=== PATIENT | male | born 1965 | race Asian ===

== ENCOUNTER 2018-11-27 16:23 | Inpatient (IN) | payer OTHER ==
[~2018-11-27] VITALS: Ht 172.7 cm; Wt 113.0 kg
--- NOTE | 2018-11-27 16:28 | NUR ---
PT BIBA [facility] FOR SOB. PT ARRIVED ON 10LPM SIMPLE MASK. ATTEMPTED TO BIPAP EN ROUTE AND PT CONTINUED TO TAKE OFF BREATHING TREATMENTS. PT NOT RESPONDING TO PAINFUL STIMULI. GAZE FIXED TO RIGHT SIDE. PUPILS BRISK. PER MEDICS PT WAS AT HOME WHEN HE BEGAN TO HAVE DIFFICULTY BREATHING. ATTEMPTED ALBUTEROL TREATMENT AT HOME WITH NO RELIEF AND CALLED 911. NO MEDICAL HISTORY ASIDE FROM [facility] PER MEDICS. NO ALLERGIES PER MEDICS. PT PLACED ON O2 MONITOR AND NOTED TO BE SATTING 70S PLACED ON 6L NC WHILE RT BROUGHT BIPAP.
--- NOTE | 2018-11-27 17:00 | NUR ---
DR. HARRISON, RT AND RNS AT BEDSIDE FOR INTUBATION. 1659: 1 AMP BICARB IVP 1700: 100 MG ROCURONIUM IVP 1700: 10 MG ETOMIDATE IVP 1701: INTUBATED BY DR. HARRISON WITH 7.5 ETT AND 20 @ LL. POSITIVE COLOR CHANGE. 1710: 1 AMP BICARB IVP VENT SETTINGS: VT 450, RR 20, PEEP 5 AND FIO2 100%
[2018-11-27 17:02] LABS: BASOPHIL % 0.4 % (0-2); PLATELET COUNT 330 x10^3mcL (130-400); RED CELL DISTRIBUTION WIDTH 14.1 % (11.5-14.5)
[2018-11-27 17:05] LABS: CALCIUM 9.2 mg/dL (8.5-10.1); CARBON DIOXIDE 30.4 mmol/L (21-32); CHLORIDE SERUM 103 mmol/L (98-107); CREATININE SERUM 0.9 mg/dL (0.7-1.3); GFR1 > 60 mL/min; GLUCOSE SERUM 330 mg/dL (74-106); POTASSIUM SERUM 3.9 mmol/L (3.5-5.1); SODIUM SERUM 139 mmol/L (136-145)
[2018-11-27 17:10] LABS: ALBUMIN 4.1 g/dL (3.4-5.0); ALKALINE PHOSPHATASE 64 U/L (46-116); ALT/SGPT 34 U/L (16-63); AST/SGOT 18 U/L (15-37); BILIRUBIN TOTAL 0.41 mg/dL (0.20-1.00); TOTAL PROTEIN, SERUM 7.8 g/dL (6.4-8.2)
--- NOTE | 2018-11-27 17:10 | NUR ---
ENNIS CATHETER INSERTED USING STERILE TECHNIQUE. 400 ML URINE OUTPUT UPON INSERTION
--- NOTE | 2018-11-27 17:10 | NUR ---
RIGHT NGT INSERTED AT THIS TIME. AIR BOLUS AUSCULTATED. PT TOLERATED WELL.
[2018-11-27 17:19] LABS: UA SPECIFIC GRAVITY 1.025 (1.005-1.035); microscopic required? YES; urine erythrocyte TRACE (NEGATIVE)
--- NOTE | 2018-11-27 17:30 | NUR ---
DR. HARRISON AT BEDSIDE FOR MSE AND PT ALTERED STATUS.
--- NOTE | 2018-11-27 18:30 | NUR ---
PT TAKEN TO CT SCAN WITH MYSELF, ZULMA RT AND BRO ERT. PT TOLERATED WELL
[2018-11-27] MEDS ORDERED: PROVENTIL0.09 MG/A1 (19:14)
--- NOTE | 2018-11-27 19:35 | NUR ---
PT TRANSFERRED FROM ER VIA [facility] ACCOMPANIED JOVANI RN, EMT, AND RTS. TRANSFERRED TO ICU BED WITH FULL ASSIST. PT INTUBATED WITH NO SEDATION. PT UNRESPONSIVE, UNABLE TO FOLLOW COMMANDS. 7.5 ETT SECURED AT 22 CM @ LL. NO JVD NOTED. TRACHEA MIDLINE. AGONAL BREATHING NOTED. DIM BREATH SOUNDS GARY. ADITYA RT AT BEDSIDE WILL ADVANCE ETT PER MD ORDER. VENT SETTINGS: AC MODE RATE 20, TV 450, PEEP 5, FIO2 100%. CHEST RISE EQUAL AND SYMMETRICAL. CUSTOMER CARE REPRESENTATIVE IN PLACE SHOWING ST WITH HR 115. CHEST WALL STABLE. NO JVD NOTED. IV TO RHAND AND RAC INTACT AND PATENT. NS INFUSING @ 100ML/HR. LEVAQUIN INFUSING WITH 30ML REMIAINING. SKIN INTACT. PT WARM DRY TO TOUCH. R NARE NGT INTACT AND PATENT. PT REMAINS NPO AT THIS TIME. ABD DISTENDED AND SOFT. BOWEL SOUNDS HYPOACTIVE. F/C INTACT AND DRAINING VIA GRAVITY YELLOW URINE. GEN WEAKNESS NOTED. TURNED AND REPOSITIONED Q2H FOR PRESSURE RELIEF. ALL NEEDS MET AT THIS TIME. WILL CONTINUE TO MONITOR.
[2018-11-27 19:47] VITALS: BP 140/90
[2018-11-27 20:24] LABS: MAGNESIUM 1.9 mg/dL (1.8-2.4); PHOSPHOROUS 5.7 mg/dL (2.5-4.9)
[2018-11-27 20:25] LABS: CHOLESTEROL/HDL RATIO 5.3
--- NOTE | 2018-11-27 20:30 | NUR ---
DR DING IN TO SEE PATIENT, UPDATED ON STATUS. DR IDNG STATES TO SET UP FOR A-LINE AND CENTRAL LINE PLACEMENT. START PROPOFOL AND FENTANYL SEDATION.
--- NOTE | 2018-11-27 20:40 | NUR ---
PROPOFOL SEDATION INTITIATED AT THIS TIME 10 MCG/KG/MIN. AWAITING FOR FENTANYL TO BE DELIEVERED BY PHARMACY.
--- NOTE | 2018-11-27 20:45 | NUR ---
DR FRANCISCO SEEN DISCUSSING PLAN OF CARE WITH PATIENTS FAMILY IN [facility]. CONSENT OBTAINED FOR A-LINE AND CENTRAL LINE PLACEMENT.
[2018-11-27 21:00] LABS: AMPHETAMINE QUAL UR NONE DETECTED (See below)
--- NOTE | 2018-11-27 21:00 | NUR ---
DR DING, MICROPHONE OPERATOR, AND MYSELF AT BEDSIDE. TIME OUT DONE. RIGHT FEMORAL A-LINE INSERTED WITH GOOD BLOOD RETURN. SUTURES IN PLACE. NO ACTIVE BLEEDING NOTED. DSG CDI.
--- NOTE | 2018-11-27 21:25 | NUR ---
ADVANCED ETT TO 25.5 CM AT THE LIP PER DR. DING VERBAL ORDER. RN NOTIFIED.
--- NOTE | 2018-11-27 21:25 | NUR ---
PER DR DING, ADVANCE ETT TO 25.5. ADITYA RT AT BEDSIDE ADVANCED ETT TO 25.5, AWAITING FOR XRAY.
--- NOTE | 2018-11-27 21:35 | NUR ---
DR FRANCISCO, MACHINE FEATHEREDGER AND REDUCER, AND MYSELF AT BEDSIDE. TIME DONE FOR RIGHT VS LEFT CENTRAL LINE PLACEMENT.
--- NOTE | 2018-11-27 21:43 | NUR ---
DR DING VERBAL GIVEN TO GIVE ZOSYN X1 NOW. ORDER NOTED AND CARRIED OUT. PHARMACY MADE AWARE.
--- NOTE | 2018-11-27 22:10 | NUR ---
DR DING CALLED, UPDATED ON STATUS. DR DING STATES PTS BLOOD SUGAR WILL NOT IMPROVE WITH PTS LOW BP, CHANGE INSULIN SUBQ TO INSULIN GTT. DR FRANCISCO MADE AWARE.
--- NOTE | 2018-11-27 22:10 | NUR ---
DR DING CALLED, TELEPHONE ORDER GIVEN TO INITIATE TF VITAL AF START AT 10ML/HR, MAX WILL BE 10ML/HR. PEPCID 20MG IVP Q12H. TELEPHONE ORDER READ BACK. ORDER NOTED AND CARRIED OUT.
--- NOTE | 2018-11-27 22:19 | NUR ---
XRAY AT BEDSIDE.
[2018-11-27 22:20] VITALS: BP 81/56
--- NOTE | 2018-11-27 22:22 | NUR ---
DR DING CALLED, STATES MAX DOSE OF LEVOPHED GTT IS 6 MCG/MIN. DECREASE PROPOFOL TO 10. IF BP SUSTAINS LOW, SWITCH PROPOFOL GTT TO VERSED GTT. DR FRANCISCO MADE AWARE.
--- NOTE | 2018-11-27 22:30 | NUR ---
LEVOPHED INITIATED AT 4 MCG/MIN. ART BP 68/35 MAP 50
--- NOTE | 2018-11-27 22:46 | NUR ---
FIO2 TITRATED TO 40% DUE TO ABG PaO2 RESULT OF 142.9. RN NOTIFIED. WILL MONITOR.
--- NOTE | 2018-11-27 23:30 | NUR ---
TF VITAL AF INITIATED AT 10ML/HR, FWF 50ML Q4H.
--- NOTE | 2018-11-27 23:46 | NUR ---
PTS BP REMAINS LOW AT 88/41 MAP 58. PROPOFOL DC'D. VERSED INTIATED AT 2 MG/HR, FENTANYL INFUSING @ 1 MCG/KG/MIN.
[2018-11-28] VITALS (20 sets, daily range): BP systolic 81–112; BP diastolic 42–73
--- NOTE | 2018-11-28 00:09 | NUR ---
NEOSYNEPHRINE GTT INITIATED AT THIS TIME @ 50 MCG/MIN, ART LINE MAP=58.
--- NOTE | 2018-11-28 00:19 | NUR ---
BLOOD SUGAR 343, INSULIN GTT TITRATED TO 4 UNITS/HR FROM 5 UNITS/HR AT THIS TIME PER SLIDING SCALE PER EMAR.
--- NOTE | 2018-11-28 01:04 | NUR ---
BS 300, INSULIN GTT TITRATED TO 3 UNITS/HR.
--- NOTE | 2018-11-28 03:23 | NUR ---
BP 91/42 MAP 62, NEOSYNEPHRINE TITRATED TO 75 MCG/MIN.
--- NOTE | 2018-11-28 04:15 | NUR ---
BS 232, INSULIN GTT TITRATED TO 2 UNITS/HR.
[2018-11-28 05:27] LABS: PLATELET COUNT 293 x10^3mcL (130-400)
--- NOTE | 2018-11-28 05:30 | NUR ---
PTS VENT ALARMING LOW VTE AND HIGH PRESSURE D/T PT BREATH STACKING. PT SEEN WITH LABORED AND ACCESSORY MUSCLE BREATHING. VERSED INCREASED TO 4 MG/HR.
[2018-11-28 05:40] LABS: CARBON DIOXIDE 28.4 mmol/L (21-32); POTASSIUM SERUM 4.6 mmol/L (3.5-5.1)
[2018-11-28 05:44] LABS: BAND NEUTROPHIL 3 % (0-10); MONOCYTE 3 % (0-7); PLATELET MORPHOLOGY PLATELETS NORMAL; SEGMENTED NEUTROPHILS 92 % (37-75); rbc morphology (normal/abnorm) NORMAL (NORMAL)
--- NOTE | 2018-11-28 06:48 | NUR ---
DR DING CALLED STATES TO START CVP. TELEPHONE ORDER READ BACK. ORDER NOTED AND CARRIED OUT. CVP MONITORING IN PLACE. CVP=9.
--- NOTE | 2018-11-28 06:50 | NUR ---
BP 113/58 MAP 77, LEVOPHED TITRATED DOWN TO 4 MCG/MIN.
--- NOTE | 2018-11-28 06:57 | NUR ---
BS 264, INSULIN GTT TITRATED TO 3 UNITS/HR.
--- NOTE | 2018-11-28 07:05 | NUR ---
REPORT GIVEN TO DIMPLE JERRY TO ASSUME CARE.
--- NOTE | 2018-11-28 07:07 | NUR ---
RECIEVED REPORT FROM ROSALINO CASTLE TO ASSUME ALL CARES. ALL QUESTIONS AND CONCERNS ADDRESSED.
--- NOTE | 2018-11-28 08:00 | NUR ---
DR. DING AT BEDSIDE TO ASSESS PATIENT. UPDATES PROVIDED AND POC DISCUSSED. ORDERS GIVEN BY DR. DING INCLUDE: VENT SETTINGS CHANGED BY DR. DING TO PC MODE, PS 24, RATE 16, FI02 40% AND PEEP 5, WILLI, RT TO OBTAIN ABG AND NOTIFY DR. DING ABOUT THE RESULTS, TUBE FEEDINGS TITRATED UP TO 20 ML/HR, MAY TITRATE VASOPRESSORS TO KEEP MAP GREATER THAN 65 USING THE NIBP, KEEP PATIENT SEDATED AT THIS TIME, NO SEDATION VACATION AND ORDER CXR TO VERIFY ETT PLACEMENT. WILL FOLLOW AND CONTINUE TO MONITOR.
--- NOTE | 2018-11-28 08:00 | NUR ---
DR DING AT BEDSIDE TO ASSESS PT. CHANGED VENT SETTINGS TO PC 24, RR,16, +5, 40%. ABG TO FOLLOW.
--- NOTE | 2018-11-28 08:18 | NUR ---
NIBP 112/66, MAP 82. SCHUYLER-SYNEPHRINE DRIP TITRATED DOWN TO 50 MCG/MIN. WILL CONTINUE TO MONITOR.
--- NOTE | 2018-11-28 09:09 | NUR ---
NIBP 101/68, MAP 81. LEVOPHED DRIP TITRATED DOWN TO 2 MCG/MIN. WILL CONTINUE TO MONITOR.
--- NOTE | 2018-11-28 09:10 | NUR ---
FI02 TITRATED DOWN TO 30% BY RT WILLI. PATIENT'S O2 SAT 99% ON VENT. WILL CONTINUE TO MONITOR.
--- NOTE | 2018-11-28 09:24 | NUR ---
PATIENT'S HEART RATE IS 130-135'S BPM, DR. KENIA DUARTE. FAMILY AT BEDSIDE AND EDUCATED ABOUT THE INCREASE IN HR WHICH COULD BE DUE TO HEARING THE FAMILY TALKING. ASKED FAMILY IF THEY COULD LER THE PATIENT REST AND THEY MAY GO TO THE LOBBY AND TALK IF THEY WOULD LIKE. FAMILY VERBALIZED UNDERSTAING AND ARE COOPERATIVE. WILL CONTINUE TO MONITOR.
--- NOTE | 2018-11-28 09:29 | NUR ---
SPOKE WITH PATI AT [facility] AND REPORTED THAT PATIENT NEEDS AICD INTERROGATED. [facility] PAGING LOCAL JAPANESE PROFESSOR MICH TO CONTACT UNIT. AWAITING RETURN CALL AT THIS TIME.
--- NOTE | 2018-11-28 09:52 | NUR ---
AND JOE, CHARGE NURSE WERE IN THE ROOM RESPOSTIONING AND PULLED THE PATIENT UP WHEN HIS EYES OPENED AND WAS ABLE TO GESTURE TO OUR QUESTIONS APPROPRIATELY. PATIENT REPOSTIONED TO RIGHT SIDE WITH PILLOWS IN PLACE TO ALLEVIATE PRESSURE POINTS AND HOB ELEVATED [address] AQUINO MADE AWARE PATIENT IS RESPONDING. WILL CONTINUE TO MONITOR.
--- NOTE | 2018-11-28 09:56 | NUR ---
SPOKE WITH MICH FROM [facility] REGARDING AICD INTERROGATION. PATIENT UPDATE PROVIDED. PER MY CONVERSATION WITH MICH, NO NEED FOR AICD INTERROGATION PATIENT IN [place] AND NEEDS TO BE TREATED WITH MEDICATION FOR RATE CONTROL. DR AQUINO AND DR NUNEZ ON UNIT AND MADE AWARE OF CONVERSATION. NEW ORDERS RECEIVED.
[2018-11-28 11:34] LABS: MAGNESIUM 1.5 mg/dL (1.8-2.4); PHOSPHOROUS 3.6 mg/dL (2.5-4.9)
--- NOTE | 2018-11-28 11:52 | NUR ---
NIBP 102/66, MAP 76. LEVOPHED DRIP TITRATED OFF. WILL CONTINUE TO MONITOR.
--- NOTE | 2018-11-28 12:41 | NUR ---
DR. MCCOY AT BEDSIDE TO ASSESS PATINET. UPDATES PROVIDED AND POC DISCUSSED. WILL CONTINUE TO MONITOR.
--- NOTE | 2018-11-28 13:42 | NUR ---
NIBP 101/59, MAP 71. SCHUYLER-SYNEPHRINE DRIP TITRATED DOWN TO 25 MCG/MIN. WILL CONTINUE TO MONITOR.
[2018-11-28] MEDS ORDERED: ALDACTONE50 MG PO (14:31)
[2018-11-28] MEDS ORDERED: LIPI20 PO (14:31)
[2018-11-28] MEDS ORDERED: BISOPROLOL FUMAR5 MG PO (14:32)
[2018-11-28] MEDS ORDERED: GABAPENTIN300 M4 PO (14:32)
[2018-11-28] MEDS ORDERED: ASPIRIN ADULT L81 M5 PO (14:33)
[2018-11-28] MEDS ORDERED: GLIMEPIRIDE2 M1 PO (14:34)
[2018-11-28] MEDS ORDERED: ACT30 PO (14:34)
[2018-11-28] MEDS ORDERED: METFORMIN HYDR500 M1 PO (14:36)
[2018-11-28] MEDS ORDERED: GEMFIBROZIL600 MG PO (14:37)
[2018-11-28] MEDS ORDERED: VENTOLIN H0.09 MG/A1 INH (14:38)
[2018-11-28] MEDS ORDERED: LOSARTAN POTASS50 M1 PO (14:40)
[2018-11-28 14:52] LABS: CALCIUM 7.9 mg/dL (8.5-10.1); CARBON DIOXIDE 29.2 mmol/L (21-32); CREATININE SERUM 1.9 mg/dL (0.7-1.3); POTASSIUM SERUM 4.4 mmol/L (3.5-5.1)
--- NOTE | 2018-11-28 15:02 | NUR ---
URINE CULTURE SENT TO LAB WITH PRINTED ORDER.
--- NOTE | 2018-11-28 15:45 | NUR ---
SPOKE WITH DR DING AND PROVIDED PATIENT UPDATE. NEW ORDERS RECEIVED. WILL CARRY OUT ORDERS. WILL CONTINUE TO MONITOR.
--- NOTE | 2018-11-28 15:55 | NUR ---
INSULIN DRIP DC'D AT THIS TIME PER DR. DING ORDER. WILL FOLLOW AND CONTINUE TO MONITOR.
--- NOTE | 2018-11-28 17:37 | NUR ---
NIBP 103/59, MAP 73. SCHUYLER-SYNEPHRINE DRIP TITRATED OFF AT THIS TIME. VITAL AF TUBE FEEDINGS TITRATED UP TO GOAL RATE TO 30 ML/HR PER DR. DING ORDER. WILL CONTINUE TO MONITOR.
--- NOTE | 2018-11-28 19:00 | NUR ---
TRANSACTION ADVISORY SERVICES MANAGER @ BEDSIDE FOR TROPININ LAB DRAW.
--- NOTE | 2018-11-28 19:16 | NUR ---
FAMILY @ BEDSIDE. NURSING UPDATES.
--- NOTE | 2018-11-28 19:17 | NUR ---
REPORT RECIEVED FROM ROSALINO MUSA. NURSING UPDATES. POC DISCUSSED. RESUMED CARE OF PT.
--- NOTE | 2018-11-28 19:41 | NUR ---
DR KUMAR NOTIFIED OF TROPONIN 1.603. AWAITING NEW ORDERS.
--- NOTE | 2018-11-28 21:32 | NUR ---
PT BP MAP < 65 (59'S-60) FOR 30 MINS. TITRATED SCHUYLER ON @ 25 MCG/MIN. WILL CONT TO MONITOR.
--- NOTE | 2018-11-28 22:19 | NUR ---
PT MAP 79-80'S FOR 30 MIN. TITRATED SCHUYLER OFF. WILL CONT TO MONITOR FOR MAP > 65.
--- NOTE | 2018-11-28 22:58 | NUR ---
BP MAP 59-60'S. TITRATED SCHUYLER TO 25MCG/MIN. WILL CONT TO MONITOR.
--- NOTE | 2018-11-28 23:48 | NUR ---
PT RT YAZMIN PT TERMINATING BREATHS W/ PRESSURE SUPPORT. NOTED TITRATED SEDATION FROM VERSED 4MG/HR TO 5MG/HR. WILL CONT TO MONITOR. SCHUYLER INFUSING @ 25MCG/MIN AND BP WNL. MAP 80.
[2018-11-29] VITALS (13 sets, daily range): BP systolic 90–151; BP diastolic 55–92
--- NOTE | 2018-11-29 03:25 | NUR ---
TITRATED VERSED FROM 5MG/HR TO 4MG/HR TO SEE IF PT STILL TERMINATING BREATHES ON PRESSURE CONTROL VENTILATOR. WILL CONT TO MONITOR.
--- NOTE | 2018-11-29 03:31 | NUR ---
PT TERMINATING BREATHES ON VENTILATOR MACHINE. TITRATED VERSED BACK TO 5MG/HR. PT TOLERATED WELL. RSS 5. WILL CONT TO MONITOR.
--- NOTE | 2018-11-29 04:42 | NUR ---
CLEANED LINENS, PT AND ZERO'D CVP/ART LINE. PT RESPONDS TO VERBAL STIMULUS. VS WNL. NO ACUTE CHANGES. WILL CONT TO MONITOR.
--- NOTE | 2018-11-29 04:47 | NUR ---
CONTROL PANEL OPERATOR TAMANNA @ BEDSIDE FOR AM LABS.
--- NOTE | 2018-11-29 05:00 | NUR ---
PT MAP 80'S CONSISTENTLY FOR 2 HOURS. TITRATED SCHUYLER OFF. WILL CONT TO MONITOR.
[2018-11-29 05:10] LABS: CALCIUM 7.9 mg/dL (8.5-10.1); CARBON DIOXIDE 26.2 mmol/L (21-32); CREATININE SERUM 1.8 mg/dL (0.7-1.3); MAGNESIUM 1.7 mg/dL (1.8-2.4); PHOSPHOROUS 2.3 mg/dL (2.5-4.9); POTASSIUM SERUM 4.5 mmol/L (3.5-5.1)
[2018-11-29 05:11] LABS: PLATELET COUNT 241 x10^3mcL (130-400)
[2018-11-29 05:26] LABS: RED CELL DISTRIBUTION WIDTH 14.6 % (11.5-14.5)
[2018-11-29 05:30] LABS: BAND NEUTROPHIL 1 % (0-10); MONOCYTE 6 % (0-7); SEGMENTED NEUTROPHILS 91 % (37-75)
[2018-11-29 05:31] LABS: PLATELET MORPHOLOGY PLATELETS NORMAL; rbc morphology (normal/abnorm) NORMAL (NORMAL)
--- NOTE | 2018-11-29 05:48 | NUR ---
PT MAP TRENDING DOWN LOW 60'S MAINTAINING FOR 15MINS. TITRATED BACK ON SCHUYLER @ 25MCG/MIN. WILL ENDORSE AND CONT TO MONITOR.
--- NOTE | 2018-11-29 06:35 | NUR ---
DR AQUINO @ BEDSIDE. NURSING UPDATES. POC DISCUSSED. AWAITING ORDERS.
--- NOTE | 2018-11-29 07:12 | NUR ---
RECIEVED REPORT FROM REJI JERRY, WILL RESUME CARE.
--- NOTE | 2018-11-29 08:14 | NUR ---
ART LINE IBP 134/72 MAP 95, SCHUYLER IS TURNED OFF.
--- NOTE | 2018-11-29 08:42 | NUR ---
ZULMA RT AT BEDSIDE PROVIDING BREATHING TREATMENT AND ORAL SUCTION. PT TOLERATE WELL.
--- NOTE | 2018-11-29 09:01 | NUR ---
PATIENT WITH RR 24, HR 132 WITH PATIENT BREATH STACKING ON VENT. VERSED INCREASED FROM 5 MG/HR TO 6 MG HR.
--- NOTE | 2018-11-29 09:06 | NUR ---
XRAY TECHS AT BEDSIDE FOR CHEST XRAY. EXPLAINED TO TECHS THAT WE WILL CALL ONCE PATIENT APPEARS MORE COMFORTABLE EVIDENCED BY DECREASED HR AND RR'S DECREASED. HR REMAINS 132 AND RR 20.
--- NOTE | 2018-11-29 10:22 | NUR ---
MADE AWARE TO DR. PALMER PT IS POSITIVE FOR MRSA IN NARES. PT IS ON CONTACT ISOLATION.
--- NOTE | 2018-11-29 10:36 | NUR ---
NBP 92/50 MAP 63 STARTED NEOSYNEPHRINE AT 25MCG/KG/MIN TO ACHIEVE MAP ABOVE 65.
--- NOTE | 2018-11-29 10:54 | NUR ---
CXR AT BEDSIDE.
--- NOTE | 2018-11-29 12:00 | NUR ---
ART IBP 97/60 MAP 75, HR 121 25MCG/KG/MIN NEOSYNEPHRINE TURNED OFF.
--- NOTE | 2018-11-29 12:09 | NUR ---
BREATHING TX IN PLACE PT'S TOLERATING BREATHING TX BETTER. HR 118 RR16, 98%PO2SAT.
--- NOTE | 2018-11-29 14:00 | NUR ---
DR. MCCOY AT BEDSIDE DISCUSSING POC WITH FAMILIES, PROVIDED PT STATUS UPDATE PER DR. MCCOY TO GIVE 20MG IVP LASIX. AWAITING FOR ORDERS.
--- NOTE | 2018-11-29 14:05 | NUR ---
VERSED AND FENTANYL OFF FOR SEDATION VACTION.
--- NOTE | 2018-11-29 14:05 | NUR ---
DR DING AT BEDSIDE TO ASSESS PATIENT. SEDATION VACATION INITITATED WITH FENTANYL AND VERSED TITRATED OFF. DR DING PLACED PATIENT ON CPAP 12/5 FIO2 30%. PATIENT TOLERATING WELL. WILL CONTINUE TO MONITOR.
--- NOTE | 2018-11-29 14:16 | NUR ---
DR. DING AT BEDSIDE ASSESS PT AND UPDATING POC.
--- NOTE | 2018-11-29 14:30 | NUR ---
NOTIFIED ZULMA ARAYA THAT DR. DING PUT PT ON CPAP.
--- NOTE | 2018-11-29 14:50 | NUR ---
PER DR. DING TO REMOVE ART LINE.
--- NOTE | 2018-11-29 14:55 | NUR ---
ART LINE TO R FEMORAL IS REMOVED WITH PROPER TECHNIQUES. PRESSURE APPLIED TO SITE FOR 5MINS, DRESSED WITH SURGISEL AND GAUZE, 3LB SAND BAG IS ALSO PUT OVER SITE FOR REINFORCEMENT. NO SIGNS OF BLEEDING TO SITE.
--- NOTE | 2018-11-29 16:15 | NUR ---
VENTILATOR ALARM BEGAN ALARMING HIGH PRESSURE. ENTERED PATIENT'S ROOM AND FOUND THAT PATIENT HAD REMOVED THE ETT. PATIENT HAD BEEN PLACED IN RESTRAINTS AT 1420. PATIENT MANAGED TO GRAB ONTO INLINE SUCTION EQUIPMENT TO DISLODGE ETT. PATIENT IMMEDIATELY PLACED IN UPRIGHT POSITION AND TUBE FEED TITRATED OFF. PATIENT ALSO PLACED ON SIMPLE MASK AT 6 LPM WITH SPO2 NOTED AT 96%. PATIENT ASSESSED BY MYSELF AND APPEARS TO BE IN NO ACUTE DISTRESS. WHEEZES NOTED BILATERALLY UPON AUSCULTATION OF LUNG SOUNDS. JAUN RN TELEPHONED RT. ZULMA TRAN RT AND GERARD RT CAME BEDSIDE. PATIENT ADMINISTERED BREATHING TX. DR DING TELEPHONED AND MADE AWARE. NEW ORDERS RECEIVED. WILL CARRY OUT ORDERS.
--- NOTE | 2018-11-29 16:20 | NUR ---
DR AQUINO AT BEDSIDE TO ASSESS PATIENT. UPDATES PROVIDED BY NURSING.
--- NOTE | 2018-11-29 18:12 | NUR ---
ZULMA ARAYA PUT PT ON HIGH FLOW AT 35%FIO2, AT 15LPM, RR 18 AT 94%PO2SAT. PT TOLERATED WELL.
--- NOTE | 2018-11-29 18:27 | NUR ---
REASSESS AT BEDSIDE, PT HAS DIFFUSED COARSE CRACKLES TO BL LUNG ROBERT WITH EVEN CHEST RISE. RR18 AT 95%PO2SAT.
--- NOTE | 2018-11-29 19:06 | NUR ---
RECEIVED REPORT FROM JAUN RN. WILL CONTINUE PT CARE AND TREATMENT PLAN.
--- NOTE | 2018-11-29 19:35 | NUR ---
RECEIVED PT ALERT AND ORIENTED TO PERSON AND PLACE. PT DROWSY DUE TO RECENT SEDATION. PT RECENTLY SELF EXTUBATED HIMSELF EARLIER TODAY. SPEECH GARBLED. BREATHING E/U. PT IS ON HI FLOW FIO2 35%, LPM 15. LUNG SOUNDS HAVE COARSE CRACKLES BILAT. S1S2 AUSCULTATED. PT STATES NO PAIN AT THIS TIME. PULSES PALPABLE. CAP REFILL < 3 SEC. PT HAS RIJ CVC INFUSING NS AT 100CC/HR, DRESSING CDI. ABDOMEN ROUND, NONTENDER. NO N/V/ NOTED. NPO AT THIS TIME. SKIN INTACT, WARM, DRY. ENNIS CATHETER IN PLACE DRAINING VIA GRAVITY EZEQUIEL URINE. BED IN LOW POSITION. CALL LIGHT WITHIN REACH. WILL CONTINUE TO MONITOR.
--- NOTE | 2018-11-29 20:32 | NUR ---
RT AT BEDSIDE ASSESSING PT AND GIVING BREATHING TREATMENT. PT TOLERATING WELL.
[2018-11-30 03:30] VITALS: BP 140/91
--- NOTE | 2018-11-30 03:30 | NUR ---
ASSESSED PT AT BEDSIDE. NAD NOTED. BREATHING E/U. PT REMAINS ON HI FLOW WITH SETTINGS FIO2 35%, LPM 15. LUNG SOUNDS HAVE CRACKLES BILATERALLY. PT SINUS TACHY ON DERMATOLOGY NURSE. HR 109. PT STATES NO PAIN AT THIS TIME. REPOSITIONED PT TO L SIDE AND OFFLOADED BONY PROMINENCES. SCD'S IN PLACE. ALL NEEDS MET. WILL CONTINUE TO MONITOR.
--- NOTE | 2018-11-30 04:13 | NUR ---
RT AT BEDSIDE ASSESSING PT AND GIVING BREATHING TREATMENT, PT TOLERATING WELL.
[2018-11-30 05:23] LABS: CALCIUM 8.3 mg/dL (8.5-10.1); CARBON DIOXIDE 28.8 mmol/L (21-32); CHLORIDE SERUM 111 mmol/L (98-107); CREATININE SERUM 1.3 mg/dL (0.7-1.3); GFR1 > 60 mL/min; GLUCOSE SERUM 181 mg/dL (74-106); MAGNESIUM 2.2 mg/dL (1.8-2.4); PHOSPHOROUS 1.8 mg/dL (2.5-4.9); POTASSIUM SERUM 4.2 mmol/L (3.5-5.1); SODIUM SERUM 146 mmol/L (136-145)
[2018-11-30 05:45] LABS: BASOPHIL % 0 % (0-2); PLATELET COUNT 216 x10^3mcL (130-400)
--- NOTE | 2018-11-30 06:02 | NUR ---
CHEST X-RAY BEING DONE AT BEDSIDE.
--- NOTE | 2018-11-30 06:27 | NUR ---
DR. AQUINO AT PT BEDSIDE. UPDATES PROVIDED.
--- NOTE | 2018-11-30 07:15 | NUR ---
GAVE REPORT TO IVELISSE JERRY. ALL QUESTIONS AND CONCERNS ADDRESSED.
--- NOTE | 2018-11-30 07:31 | NUR ---
RECEIVED PT'S REPORT FROM LEAVING NURSE. PT IS AA/O X4. PT BREATHING ON HIFLOW O2 FIO2 35%, EVEN, UNLABORED. ENNIS IN PLACE, DRAINING VIA GRAVITY, PINK BLOODY COLOR URINE NOTED. DR. AQUINO AWARE ABOUT THE URINE COLOR CHANGED. CENTRAL LINE INPLACE, WHITE PORT NOT PATENT. NS IS INFUSING AT 100ML/HR. PT TOLERATE WELL ICE CHIP. NPO AT THIS TIME. WILL CONTINUE TO MONITOR.
[2018-11-30 08:16] VITALS: BP 144/95
--- NOTE | 2018-11-30 08:51 | NUR ---
BEDSIDE SWALLOW EVALUATION COMPLETED. PATIENT ABLE TO TOLERATE INGESTION OF PUDDING, APPLE SAUCE, JELLO AND THIN LIQUIDS WITHOUT COUGHING, GAGGING OR CHOKING.
--- NOTE | 2018-11-30 10:35 | NUR ---
DR. PALMER LED MEDICAL TEAM MAKING MORNING ROUND. PT'S CONDITION UPDAATED.
--- NOTE | 2018-11-30 10:50 | NUR ---
START PT ON BLADDER TRAINING TO GET READY FOR DC ENNIS PER ORDER.
[2018-11-30 12:27] VITALS: BP 159/105
--- NOTE | 2018-11-30 12:31 | NUR ---
PT'S AT BEDSIDE. PT FEELING URGENCY, DRAIN 600ML URINE, PINK BLOODY COLOR. RECLAMPED ENNIS CATHETER, WILL GET READY TO DC ENNIS.
--- NOTE | 2018-11-30 12:47 | NUR ---
Intervention/RDN Recommendation(s): 1. Continue CCHO diet as tolerated.
--- NOTE | 2018-11-30 12:47 | NUR ---
Initial Nutrition Assessment- Dx: SOB PMHx: asthma, DM, CHF with defibrillator, ID x 2 years ago PSHx: None Labs: (11/30) Na 146 H, K 4.2, Glu 181 H, BUN 30 H, Cr 1.3, TG 248 H, Chol 224 H, LDL 149 H, A1c 9.6 H, H/H 12.5/37 Meds: Colace, D10%, humulin, lactulose, Lasix, potassium phosphate, solu-medrol, Zofran, zosyn Diet: Started on CCHO diet on 11/30 breakfast. Current Nutrition Support: TF Vital AF 1.2 via NGT d/c'd. TF Intake: (11/28) 59 mL, (11/29) 441 mL, (11/30) 144 mL I/O: (11/28) 2135/2000 (+135 mL); (11/29) 3747/1525 (+2222 mL); (11/30) 3196/3260 (-64 mL) Ht: 172.72 cm/68 inches/5'8" Wt: 113 kg/249 pounds BMI: 37.8 kg/m2, obesity class 2 IBW: 154 pounds/70 kg %IBW: 161% ADJBW: 178 pounds/81 kg UBW: Unknown Age: 53 Food Allergies: NFKA Skin: Intact Leobardo: 14 Edema: None GI: Last BM prior to admission per Pt Pt admitted with dx: acute respiratory failure 2/2 status asthmaticus vs. aspiration pneumonia, leukocytosis, vasomotor nephropathy with proteinuria, witnessed seizure, DMOOC, dyslipidemia, hyperphosphatemia, ulcer prophylaxis, DVT prophylaxis. Pt extubated on 11/29/18. Receiving breathing treatments. Per physician progress note (11/30), Pt self-extubated yesterday, continues on IV Solumedrol. Pt s/o sore throat, denies N/V. Per nursing, bedside swallow eval completed, Pt able to tolerate ingestion of pudding, applesauce, Jello, and thin liquids without coughing, gagging, or choking. Pt started on CCHO diet. Pt reports a good appetite, denies GI s/s. Pt in good spirits overall. Pt reports not following the diabetic diet at home and declines diabetic diet education and handouts at this time. RDN briefly mentioned that given that fact that follows a [place] diet, he may consider eating less rice and more vegetables to achieve better glycemic control. Pt was verbalizes understanding and appreciation for snippet of diet education. Pt will consider that upon discharge. Problem with: N: no V: no D: no C: no Problems with: Chewing: no Swallowing: no Current appetite: good, feels hungry and ready for solid food Recent wt changes: none but Pt desires to lose wt - "just a couple of pounds" Vitamin/Supplement: none Special Diet at Home: regular; is not ready to follow DM diet at home Physical activity: walking Education: has had DM diet education in the past, declined offer for DM diet education/handouts today. Estimated Nutritional Needs Based on adjusted body weight of 81 kg. Energy: 3131-1669 kcal/d (25-30 kcal/kg for maintenance) Protein: 65-81 gm/d (0.8-1 gm/kg for maintenance) Fluid: 2674-0666 mL/d (1 mL/kcal) or per MD. Nutrition Diagnosis 1. Inadequate oral intakes related to NPO status as evidenced by Pt is s/p extubation. (Continues on TF) Intervention/RDN Recommendation(s): 1. Continue CCHO diet as tolerated. Monitor/Evaluate Goal: Intake via PO intakes to meet at least 75% of estimated needs with acceptable tolerance within 2-3 days. Intake via PO route to meet at least 80% of estimated needs with acceptable tolerance within 2-3 days. Monitor: PO intakes and/or nutrition support tolerance, Labs, GI function, Skin integrity, Weights. F/U in 2-3 days as high risk (12/02-)
--- NOTE | 2018-11-30 13:31 | NUR ---
ASSIST PT OUT OF BED TO USE BSC, PT TOLERATE WELL. PT HAD BM.
--- NOTE | 2018-11-30 14:07 | NUR ---
PT FELT URGENCY TWO TIMES WITH BLADDER TRAINING. DC ENNIS CATHETER PER ORDER. PT TOLERATE WELL. HIBICLEN BATH GIVEN.
[2018-11-30 16:25] VITALS: BP 155/88
--- NOTE | 2018-11-30 17:59 | NUR ---
SPOKE WITH PATIENT'S AND INFORMED HER THAT PATIENT'S HOME MEDICATION OF BISOPROLOL IS A NON FORMULATARY MEDICATION AT [facility]. PATIENT'S WILL BRING MEDICATION FROM HOME AND GIVE TO NURSING SO WE MAY GIVE TO PHARMACY TO DISPENSE.
--- NOTE | 2018-11-30 19:10 | NUR ---
RECEIVED REPORT FROM IVELISSE JERRY FOR PT TRANSFER FROM ICU.
--- NOTE | 2018-11-30 19:30 | NUR ---
PT TRANSFERRED HERE FROM ICU ACCOMPANIED BY 2 NURSES. NAD DISTRESS. BREATHING E/U. LUNG SOUNDS HAVE WHEEZING NOTED BILATERALLY. RT AT BEDSIDE. PT STATES NO PAIN AT THIS TIME. BED IN LOW POSIITON. CALL LIGHT WITHIN RE4ACH. WILL CONTINUE TO MONITOR.
[2018-11-30 21:39] VITALS: BP 146/94
--- NOTE | 2018-11-30 22:40 | NUR ---
GAVE REPORT TO MISTY JERRY. ALL QUESTIONS AND CONCERNS ADDRESSED.
--- NOTE | 2018-11-30 22:43 | NUR ---
PT RECEIVED RESTING IN BED WITH EYES CLOSED, BUT IS EASILY AROUSABLE. PT IS A/O X4, ABLE TO MAKE NEEDS KNOWN. TELE #17, DENIES ANY CP/PRESSURE. BREATHING IS EVEN AND UNLABORED ON HI FLOW FI02 35%, LPM-15, NO RESP DISTRESS NOTED. PT DENIES HAVING ANY PAIN AT THIS TIME. RIJ IN PLACE, PORTS PATENT AND INTACT, SL TO RH AND RAC, SITES FREE FROM REDNESS OR SWELLING. FAMILY AT BEDSIDE. BED IN LOWEST SETTING, SIDE RAILS UP X2, CALL LIGHT WITHIN REACH. DROPLET PRECAUTIONS MAINTAINED. NO ACUTE DISTRESS NOTED. WILL CONT TO MONITOR.
--- NOTE | 2018-12-01 00:45 | NUR ---
PT RESTING IN BED WITH EYES CLOSED, BUT IS EASILY AROUSABLE. BREATHING IS EVEN AND UNLABORED, NO RESP DISTRESS NOTED. PT DENIES HAVING ANY PAIN AT THIS TIME. URINAL EMPTIED-600 ML, DARK EZEQUIEL AND BLOOD-TINTED URINE NOTED. IVF INFUSING WELL TO RIJ, SL TO RH AND RAC, SITES FREE FROM REDNESS OR SWELLING. NO ACUTE DISTRESS NOTED. FAMILY AT BEDSIDE. CALL LIGHT WITHIN REACH. WILL CONT TO MONITOR.
[2018-12-01 05:32] VITALS: BP 128/71
--- NOTE | 2018-12-01 06:09 | NUR ---
PT SLEPT WELL THROUGHOUT THE EVENING. BREATHING IS EVEN AND UNLABORED ON HIGH FLOW 35%, LPM-15, NO RESP DISTRESS NOTED. PT DENIES HAVING ANY PAIN AT THIS TIME. IVF INFUSING WELL TO RIJ, SL TO RAC AND RH, PATENT AND INTACT, SITES ARE FREE FROM REDNESS OR SWELLING. NO ACUTE CHANGES ENCOUNTERED DURING SHIFT. ALL NEEDS MET AND ANTICIPATED. FAMILY AT BEDSIDE. CALL LIGHT WITHIN REACH. WILL ENDORSE CARE TO AM NURSE.
--- NOTE | 2018-12-01 07:30 | NUR ---
PT IN NO ACUTE DISTRESS. CONTINUITY OF CARE ENDORSED TO SONAM JERRY. ALL QUESTIONS AND CONCERNS ADDRESSED.
[2018-12-01 08:08] LABS: BASOPHIL % 0.1 % (0-2); PLATELET COUNT 245 x10^3mcL (130-400); RED CELL DISTRIBUTION WIDTH 14.4 % (11.5-14.5)
[2018-12-01 08:19] LABS: CALCIUM 9.1 mg/dL (8.5-10.1); CARBON DIOXIDE 29.2 mmol/L (21-32); CHLORIDE SERUM 107 mmol/L (98-107); CREATININE SERUM 1.2 mg/dL (0.7-1.3); GFR1 > 60 mL/min; GLUCOSE SERUM 201 mg/dL (74-106); MAGNESIUM 2.2 mg/dL (1.8-2.4); PHOSPHOROUS 2.7 mg/dL (2.5-4.9); POTASSIUM SERUM 4.2 mmol/L (3.5-5.1); SODIUM SERUM 144 mmol/L (136-145)
[2018-12-01 09:45] VITALS: BP 129/86
--- NOTE | 2018-12-01 12:19 | NUR ---
P.T. NOTES P.T. EVAL COMPLETED; NURSING TO AMB AD EDWIGE; REFER TO EVAL FOR DETAILS.
[2018-12-01] MEDS ORDERED: ENTRESTO1 TAB PO (12:39)
[2018-12-01 12:56] VITALS: BP 125/76
[2018-12-01 16:32] VITALS: BP 116/63
--- NOTE | 2018-12-01 18:23 | NUR ---
DROPLET ISOLATION FOR RESP CX (+) GRAM (+) COCCI, MRSA TO NARES. MINIMAL ASSIST WITH BRP. OBESE. ON HIGH FLOW 35% . NS INFUSING 50 CC HOUR TO RT IJ TRIPLE LUMEN. ALL PORTS PATENT. ON ZOSYN AND SOLUMEDROL IV. RT PROTOCOL. BILAT WHEEZE. URINAL AND CALL LIGHT WITHIN REACH.DENIES ANY PAIN.
--- NOTE | 2018-12-01 18:53 | NUR ---
NO CHANGES. SEEN BY DR. DING TODAY. PT TO CONTINUE USING I.S.. NS 50 CC HOUR. ZOSYN AND SOLUMDROL IV. ON RT PROTOCOL. INDEPENDENT W ADL'S. CONTINUES ON HIGH FLOW 35%. NO C/O PAIN. OCC COUGH AND ITCHY THROAT. CEPACOL LOZENGES HELPFUL. WEARING SCD'S. TELE # 17 SR-ST. CALL LIGHT WITHIN REACH.
--- NOTE | 2018-12-01 19:55 | NUR ---
PT SEEN, SITTING UP AT EDGE OF BED, ALERT AND ORIENTED X 4 AND VERY VERBALLY RESPONSIVE, DENIES HEADACHE OR DIZZINESS, LUNG SOUNDS DIMINISHED, ON HIGH FLOW WITH FIO2:35%, RT PROTOCOL, ON AND OFF COUGH, ON TELE#17 SR WITH DEPRESSED T-WAVE, DENIES CHEST PAIN, RIJ WITH CENTRAL LINE, SL TO RH AND RAC, PULSES PALPABLE, EDEMA NOTED TO BLE, MILD GENERALIZED WEAKNESS BUT ABLE TO MOVE ALL EXT AND AMBULATES, ABD ROUND WITH ACTIVE BS, NO BM AT THIS TIME, VOIDING FREELY, NO DISTRESS NOTED, WILL KEEP TO MONITOR.
--- NOTE | 2018-12-01 20:13 | NUR ---
CALLED [facility] FOR INTERROGATING PT'S PACEMAKER, SPOKE WITH VIK, PER VIK HE WILL CALL THE [employer], [facility] [employer] CALLED BACK AND PER MO SHE WILL BE HERE IN THE MORNING FOR INTERROGATE PT'S PACEMAKER.
[2018-12-01 20:45] VITALS: BP 135/78
--- NOTE | 2018-12-01 21:00 | NUR ---
RIJ CENTRAL LINE DRESSING CHANGED.
[2018-12-02 06:21] VITALS: BP 129/66
--- NOTE | 2018-12-02 06:24 | NUR ---
PT ASLEEP BUT EASILY AROUSABLE, SLEPT ON AND OFF WHOLE NIGHT, BREATHING EVEN AND UNLABORED ON HIGH FLOW 15L WITH FIO2:35%, RT PROTOCOL, IVF INFUSING WELL, RIJ CENTRAL LINE DRESSING C/D/I, GAVE ONE TIME NORCO PO FOR GOOD RELIEF, NO DISTRESS NOTED, WILL KEEP TO MONITOR.
[2018-12-02 06:32] LABS: BASOPHIL % 0.3 % (0-2); PLATELET COUNT 212 x10^3mcL (130-400)
[2018-12-02 07:51] LABS: CALCIUM 8.9 mg/dL (8.5-10.1); CARBON DIOXIDE 25.8 mmol/L (21-32); CHLORIDE SERUM 105 mmol/L (98-107); GFR1 > 60 mL/min; GLUCOSE SERUM 219 mg/dL (74-106); PHOSPHOROUS 3.8 mg/dL (2.5-4.9); POTASSIUM SERUM 4.4 mmol/L (3.5-5.1); SODIUM SERUM 140 mmol/L (136-145)
--- NOTE | 2018-12-02 09:30 | NUR ---
CDL A DRIVER PRESENT TO DO PACEMAKER INTERROGATION, REPORT IN CHART.
--- NOTE | 2018-12-02 10:00 | NUR ---
MD ROUNDS WITH DR. MERCADO, MEDICAL TEAM, CHG NURSE, ATTDG NURSE. SPOKE WITH DR. MERCADO REGARDING NEED FOR Q4H ACCUCHECKS, PER DR. MERCADO OKAY TO CHANGE TO AC/HS, DEFERRED TO DR. AQUINO WHO IS FOLLOWING. PAGE GATE TO DR. AQUINO REQUESTING ORDER.
[2018-12-02 10:11] VITALS: BP 152/87
--- NOTE | 2018-12-02 12:05 | NUR ---
LOZENGE PROVIDED PER MAR FOR SORENESS TO THROAT. NO OTHER NEEDS AT THIS TIME.
--- NOTE | 2018-12-02 12:50 | NUR ---
SYLVIA RN ASKED NURSE TO REQUEST GLUCOMETER, STRIPS, LANCETS UPON DISCHARGE. PAGEGATE SENT TO DR. AQUINO WITH THIS REQUEST.
[2018-12-02 13:34] VITALS: BP 138/79
--- NOTE | 2018-12-02 13:51 | NUR ---
TITRATED PT DOWN TO 2L NC. NO ACUTE RESP DISTRESS NOTED. PT DENIES SOB. WILL CONT.TO MONITOR. NOTIFIED NURSE MALENA.
--- NOTE | 2018-12-02 16:00 | NUR ---
PATIENT USING INCENTIVE SPIROMETER. HE REPORTS NO RESPIRATORY DISTRESS AT THIS TIME.
[2018-12-02 16:03] VITALS: Ht 172.7 cm; Wt 113.0 kg
[2018-12-02 17:44] VITALS: BP 135/76
--- NOTE | 2018-12-02 18:11 | NUR ---
PATIENT SITTING UP ON SIDE OF BED FOR DINNER. NO DISTRESS NOTED.
--- NOTE | 2018-12-02 19:21 | NUR ---
REPORT GIVEN TO ROSALINO HOLMAN. PATIENT AWAKE, ALERT, NO RESPIRATORY DISTRESS, NASAL CANNULA AT 2L. NS 10 ML/HR TO RIGHT IJ. RIGHT HAND AND RAC PERIPHERAL IVs PATENT. AT BEDSIDE. CONTACT ISOLATION FOR MRSA NARES MAINTAINED. BED LOW, CALL LIGHT WITHIN REACH. CARE ENDORSED.
--- NOTE | 2018-12-02 21:12 | NUR ---
RECEIVED REPORT FROM DAY SHIFT RN. PT RESTING IN BED. AA&O X4. NO SOB ON O2 2L VIA NC. BREATHING EVEN AND UNLABORED. NO C/O PAIN. NO DISTRESS NOTED. RIJ CENTRAL LINE, SALINE LOCK TO RIGHT HAND AND RAC, INTACT. SAFETY MEASURES IN PLACE. BED IN LOWEST POSITION. SIDE RAILS UP X2. INSTRUCTED PT TO USE THE CALL LIGHT FOR ASSISTANCE. CALL LIGHT WITHIN REACH. AT BEDSIDE.
[2018-12-02 21:16] VITALS: BP 123/69
--- NOTE | 2018-12-02 23:40 | NUR ---
PT C/O BLE ACHING PAIN 12/15. NORCO GIVEN.
--- NOTE | 2018-12-03 01:15 | NUR ---
PT RESTING WITH EYES CLOSED. NO SOB ON O2 2L VIA NC. NO FACIAL GRIMACING. NO DISTRESS NOTED. CALL LIGHT WITHIN REACH. WILL CONTINUE TO MONITOR. AT BEDSIDE.
[2018-12-03 06:07] VITALS: BP 121/81
--- NOTE | 2018-12-03 06:24 | NUR ---
CEPACOL GIVEN FOR SORETHROAT.
[2018-12-03 06:32] LABS: PLATELET COUNT 279 x10^3mcL (130-400)
--- NOTE | 2018-12-03 07:00 | NUR ---
PT SLEPT AT LONG INTERVALS THROUGHOUT SHIFT. NO SOB ON O2 2L VIA NC. BREATHING EVEN AND UNLABORED. NO C/O CHEST PAIN. NO DISTRESS NOTED. SAFETY MEASURES MAINTAINED. ALL NEEDS ATTENDED TO. CALL LIGHT WITHIN REACH. WILL ENDORSE CONTINUITY OF CARE TO DAY SHIFT RN.
[2018-12-03 07:03] LABS: CALCIUM 9.6 mg/dL (8.5-10.1); CARBON DIOXIDE 25.9 mmol/L (21-32); CHLORIDE SERUM 100 mmol/L (98-107); CREATININE SERUM 1.1 mg/dL (0.7-1.3); GFR1 > 60 mL/min; GLUCOSE SERUM 254 mg/dL (74-106); MAGNESIUM 2.1 mg/dL (1.8-2.4); PHOSPHOROUS 4.1 mg/dL (2.5-4.9); POTASSIUM SERUM 4.1 mmol/L (3.5-5.1); SODIUM SERUM 139 mmol/L (136-145)
--- NOTE | 2018-12-03 08:00 | NUR ---
RECIEVED PT SITTING UP IN BED IN GOOD SPIRITS. IS AT BEDSIDE. A/O X4 NO C/O HERNANDEZ OR DIZZINESS. TELE MONITOR #17 CONNECTED TO PT. DENIES ANY CP OR PRESSURE AT THIS TIME. LUNGS BILAT EXP. WHEEZING NOTED. NO SOB. PT AMBULATORY. IV'S TO RIGHT HAND AND LAC. RIJ TO NECK. ALL THREE INTACT AND PATENT. NO REDNESS OR INFLAMMATION NOTED. SAFETY PRECAUTIONS IN PLACE. CALL LIGHT WITHIN REACH. WILL MONITOR.
[2018-12-03] MEDS ORDERED: SINGULAIR10 MG PO (08:02)
[2018-12-03] MEDS ORDERED: MEDROL DOSEPAK4 MG PO (08:15)
--- NOTE | 2018-12-03 09:00 | NUR ---
PT TITRATED TO RA. SPO2:95%. NO ACUTE RESP DISTRESS NOTED. PT DENIES SOB. WILL CONT.TO MONITOR. NURSE JASON NOTIFIED.
[2018-12-03 09:45] VITALS: BP 135/75
--- NOTE | 2018-12-03 11:00 | NUR ---
PT STABE, WITH AT BEDSIDE. RT TOOK PT OFF O2. SAT AT 95% RA NOW. TOLERATING WELL. NO SOB NOTED. SAFETY PRECAUTIONS IN PLACE. CALL LIGHT WITHIN REACH. WILL MONITOR.
[2018-12-03 11:28] LABS: BAND NEUTROPHIL 0 % (0-10); BASOPHIL 0 % (0-2); MONOCYTE 7 % (0-7); SEGMENTED NEUTROPHILS 87 % (37-75)
[2018-12-03 11:29] LABS: PLATELET MORPHOLOGY PLATELETS DECREASED; rbc morphology (normal/abnorm) ABNORMAL (NORMAL)
--- NOTE | 2018-12-03 12:07 | NUR ---
1. Continue CCHO diet as tolerated. 2. Diabetes diet education provided.
--- NOTE | 2018-12-03 12:07 | NUR ---
Follow-up Nutrition Assessment: 212T/B ENDY FREIRE FU HR Dx: SOB PMHx: asthma, DM, CHF with defibrillator, HI x 2 years Labs: (12/03) BG 254H, BUN 25H, A1C 9.6H, WBC 13.2H Meds: Aldactone, Colace, D 10%, dulcolax, humulin, Lasix, Lipitor, Pepcid, zofran Diet: CCHO PO Intake: 100% Weights: (11/30) 113 kg Skin: Intact Leobardo: 19 I/Os: 2180/ output not documented Edema: trace BLE GI: Last BM: 12/01 RDN Visit (12/03): pt said that he has good appetite and ate most of his breakfast this morning. Pt does not have any N/V/D/C at this time. Diabetes diet education was provided using [facility] handout on "type 2 diabetes nutrition therapy". Pt verbalized understanding and did not have any questions at this time. Estimated Nutritional Needs based on adjusted body weight of 81 kg Energy: 0159-6405 kcal/d (25-30 kcal/kg for maintenance) Protein: 65-81 g/d (0.8-1.0 g/kg for maintenance) Fluids: 5507-6271 ml/d (1 ml/kcal) or per MD Nutrition Diagnosis 1. Inadequate oral intake related to NPO status as evidenced by pt is s/p extubation.(improved) Intervention 1. Continue CCHO diet as tolerated. Monitor/Evaluate Goal: Have pt meet at least 75% of estimated needs Monitor: PO intake, Labs, GI function F/U in 7 days as low risk 12/10
[2018-12-03] MEDS ORDERED: SYMBICORT1 AE3 INH (12:11)
[2018-12-03 13:30] VITALS: BP 113/71
--- NOTE | 2018-12-03 14:15 | NUR ---
PT STABLE TO D/C AT THIS TIME. RIGHT HAND IV, RAC IV, AND CENTRAL LINE REMOVED. ALL CATHETERS INTACT AND RIJ TIP INTACT. SUTURES REMOVED FROM CATHETER ALSO. APPLIED PRESSURE TO SITES LONG ENOUGH TO STOP ANY BLEEDING. NO REDNESS OR INFLAMMATION NOTED. PT REPORTS NO DISTRESS AND TOLERATED PROCEDURE WELL. COVERED WITH CLEAN GAUZE AND TAPE. ALL DISCHARGE INSTRUCTIONS AND EDUCATION GIVEN TO PT. PT VERBALIZES UNDERSTANDING. ALL D/C FORMS SIGNED BY PT AND ID BANDS REMOVED. PT TO BE ESCORTED BY STORM DOOR MAKER TO LOBBY VIA WC.
[2018-12-03 15:00] VITALS: BP 113/71
[2018-12-03] MEDS ORDERED: CEPACOL SORE TH1 LO4 MM (15:26)
[2018-12-03 16:40] VITALS: BP 113/71
== END 2018-12-03 17:05 | disposition home or self-care (01) | DRG 208 ==
LOC: ED 16:23 → IC 18:45 → EDBEDREQ 18:47 → IC 19:13 → DU 11-30 19:45
PROVIDERS: Emergency Medicine; Internal Medicine; ADMIT General Practice
PROC: 5A1945Z Respiratory Ventilation, 24-96 Consecutive Hours (ICD-10-PCS; principal; 2018-11-27)
PROC: 0BH17EZ Insertion of Endotracheal Airway into Trachea, Via Natural or Artificial Opening (ICD-10-PCS; 2018-11-27)
PROC: 04HY32Z Insertion of Monitoring Device into Lower Artery, Percutaneous Approach (ICD-10-PCS; 2018-11-27)
PROC: 02HV33Z Insertion of Infusion Device into Superior Vena Cava, Percutaneous Approach (ICD-10-PCS; 2018-11-28)
PROC: B548ZZA Ultrasonography of Superior Vena Cava, Guidance (ICD-10-PCS; 2018-11-28)
DX: J96.20 Acute and chronic respiratory failure, unspecified whether with hypoxia or hypercapnia (principal); G93.41 Metabolic encephalopathy; N17.0 Acute kidney failure with tubular necrosis; J45.902 Unspecified asthma with status asthmaticus; I50.22 Chronic systolic (congestive) heart failure; E11.65 Type 2 diabetes mellitus with hyperglycemia; R56.9 Unspecified convulsions; I11.0 Hypertensive heart disease with heart failure; I27.20 Pulmonary hypertension, unspecified; I25.5 Ischemic cardiomyopathy; I95.9 Hypotension, unspecified; E83.42 Hypomagnesemia; I07.1 Rheumatic tricuspid insufficiency; E66.9 Obesity, unspecified; E83.39 Other disorders of phosphorus metabolism; E78.5 Hyperlipidemia, unspecified; I25.2 Old myocardial infarction; Z79.84 Long term (current) use of oral hypoglycemic drugs; Z95.810 Presence of automatic (implantable) cardiac defibrillator; Z68.37 Body mass index [BMI] 37.0-37.9, adult; Z23 Encounter for immunization
CPT/HCPCS: 36556; 36600; 82962; 83880; 87804; 90658; 94150; A4628; J0696; J1642; J1644; J1815; J1940; J2060; J2250; J2370; J2543; J2704; J2920; J2930; J3010; J3475; J3490; J7030; J7040; J7613; J7620; J7626; J7644; Q0092